=== PATIENT | male | born 1985 | race Asian ===

== ENCOUNTER 2018-03-12 03:33 | Day surgery (SDC) | payer OTHER ==
[~2018-03-12 03:33] MED LIST: ONDANSETRON 4 MG/2 ML VIAL IVPUSH PRN
[2018-03-12] MEDS ORDERED: SODIUM CHLORIDE 1,000 ML IV SCH ×2 (04:15→07:00)
[2018-03-12] MEDS ORDERED: ACETAMINOPHEN 1000 MG/100 ML VIAL (NON FORMULARY) IVPB ONE ×2 (04:15→10:50)
--- NOTE | 2018-03-12 04:19 | PDOC ---
History of Present Illness - General Chief Complaint: Pain, Acute Stated Complaint: STOMACH PAIN Time Seen by Provider: 03/12/18 03:35 - History of Present Illness Initial Comments: 03/12/18 04:57 32 year old man with no past medical who presents with sudden onset throbbing mid abdominal pain that began at 1700 was initially rated at 3/10 and has continued to progress since onset. At 2000 the patient noted that the pain started radiating to the back and continued to worsen. The patient denies taking anything for the pain. Denies nausea, vomiting, diarrhea, constipation, blood in urine or stool, dysuria, fevers, chest pain or shortness of breath. The patient has no other complaints at bedside. PMHX: none PSHX: none Meds: none Allergies: NKDA Tob: none Etoh: none Rec drugs: none PCP: none Past History - Past Medical History Allergies/Adverse Reactions: Allergies Allergy/AdvReac Type Severity Reaction Status Date / Time No Known Allergies Allergy Verified 03/12/18 03:40 Home Medications: Ambulatory Orders NK [No Known Home Medication] 03/12/18 - Suicide/Smoking/Psychosocial Hx Smoking History: Never smoked Have you smoked in the past 12 months: No Information on smoking cessation initiated: No Hx Alcohol Use: No Drug/Substance Use Hx: No *Physical Exam - Vital Signs Last Vital Signs Temp Pulse Resp BP Pulse Ox 97.9 F 67 20 127/84 100 03/12/18 03:38 03/12/18 03:38 03/12/18 03:38 03/12/18 03:38 03/12/18 03:38 - Physical Exam Comments: 03/12/18 04:17 GENERAL: Awake, alert, and fully oriented, in no acute distress HEAD: No signs of trauma, normocephalic, atraumatic EYES: EOMI, sclera anicteric, conjunctiva clear ENT: oropharynx clear without exudates. Moist mucosa NECK: Normal ROM, supple LUNGS: No distress, speaks full sentences, clear to auscultation bilaterally HEART: Regular rate and rhythm, normal S1 and S2, no murmurs, rubs or gallops, peripheral pulses normal and equal bilaterally. ABDOMEN: Soft, nontender, normoactive bowel sounds. + RLQ tenderness to palpation, + guarding, No rebound BACK: No CVA tenderness GENITAL: No discharge at penile meatus, circumcised male w/ no lesions, masses of deformities, testes normal size, nontender and w/o masses EXTREMITIES : Normal inspection, Normal range of motion, no edema. No clubbing or cyanosis. NEUROLOGICAL: Normal speech, normal gait, no focal sensorimotor deficits SKIN: Warm, Dry, normal turgor, no rashes or lesions noted ED Treatment Course - LABORATORY CBC & Chemistry Diagram: 03/12/18 04:22 03/12/18 04:22 - RADIOLOGY Radiology Studies Ordered: Category Date Time Status ABDOMEN CT WITH CONTRAST* [CT] Stat CT Scan 03/12/18 04:16 Ordered Medical Decision Making - Medical Decision Making 32 year old man with no past medical who presents with sudden onset throbbing mid abdominal pain that began at 1700 was initially rated at 3/10 and has continued to progress since onset. At 2000 the patient noted that the pain started radiating to the back and continued to worsen. The patient denies taking anything for the pain. Denies nausea, vomiting, diarrhea, constipation, blood in urine or stool, dysuria, fevers, chest pain or shortness of breath. DDX including but not limited to: appendicitis vs nephrolithiasis vs W/U: - cbc, cmp, lipase - ua, ucx - abd CT TX: - 1L NS - tylenol ED Course: Patient assessed. stable. 03/12/18 05:04 Patient feels improvement with tylenol. 03/12/18 05:13 Pt ambulating the bathroom without difficulty 03/12/18 06:25 Patient reassessed. Reports pain has subsided reports some residual L sided tenderness. Nontender abdomen to palpation. *DC/Admit/Observation/Transfer Diagnosis at time of Disposition: Appendicitis - Discharge Dispostion Decision to Admit order: Yes - Referrals - Patient Instructions - Post Discharge Activity
[2018-03-12 04:33] LABS: URINE APPEARANCE CLEAR; URINE BILIRUBIN NEGATIVE (<2.0 mg/dL); URINE COLOR COLORLESS; URINE GLUCOSE (UA) NEGATIVE (NEGATIVE); URINE KETONE NEGATIVE (NEGATIVE); URINE LEUK ESTERASE NEGATIVE (NEGATIVE); URINE NITRITE NEGATIVE (NEGATIVE); URINE PROTEIN NEGATIVE (NEGATIVE); URINE UROBILINOGEN NEGATIVE mg/dL (0.2-1.0)
[2018-03-12 04:35] LABS: HEMATOCRIT 42.1 % (35.4-49); HEMOGLOBIN 13.4 GM/dL (11.7-16.9); MCH 21.2 pg (25.7-33.7); MCHC 31.8 g/dl (32.0-35.9); MEAN CELL VOLUME 66.7 fl (80-96); MEAN PLT VOLUME 8.8 fl (7.5-11.1); PLATELET COUNT 207 K/MM3 (134-434); RBC 6.31 M/mm3 (4.00-5.60); WHITE BLOOD COUNT 10.6 K/mm3 (4.0-10.0)
--- NOTE | 2018-03-12 04:38 | PDOC ---
Attending Attestation - Resident Resident Name: Munira Monsivais - ED Attending Attestation I have performed the following: I have examined & evaluated the patient, The case was reviewed & discussed with the resident, I agree w/resident's findings & plan, Exceptions are as noted - HPI HPI: 03/12/18 04:37 Agree with residents HPI - Physicial Exam PE: 03/12/18 04:38 Agree with residents PE - Medical Decision Making 03/12/18 07:14 Right lower quadrant pain on exam. History examination concerning for early appendicitis CT IV contrast ordered CT IV contrast demonstrates acute appendicitis, no evidence of perforation Case discussed with Dr. Denis surgery. Patient made NPO, IV fluids given antibiotics ordered.
[2018-03-12 05:06] LABS: ALBUMIN 4.4 g/dl (3.4-5.0); ALK PHOS 63 U/L (45-117); ANION GAP 6 MMOL/L (8-16); BILIRUBIN,TOTAL 0.6 mg/dL (0.2-1); BLOOD UREA NITROGEN 17 mg/dL (7-18); CHLORIDE 102 mmol/L (98-107); CO2 30 mmol/L (21-32); CREATININE 0.9 mg/dL (0.55-1.3); GLUCOSE,RANDOM 111 mg/dL (74-106); LIPASE 163 U/L (73-393); POTASSIUM 3.4 mmol/L (3.5-5.1); SGOT/AST 20 U/L (15-37); SGPT/ALT 25 U/L (13-61); SODIUM 137 mmol/L (136-145)
[2018-03-12] MEDS ORDERED: CEFTRIAXONE 1,000 MG in DEXTROSE 5%-WATER - 50 ML IVPB ONE (06:53)
[2018-03-12] MEDS ORDERED: CEFTRIAXONE 1 GM/50 ML BAG ONE (06:54)
[2018-03-12] MEDS ORDERED: morphine CARPU-JECT 4 MG/1 ML DISP.SYRIN IVPUSH ONE (06:55)
[2018-03-12] MEDS ORDERED: MORPHINE SULFATE 2 MG/ML VIAL ONE ×2 (06:57→09:02)
[2018-03-12] MEDS ORDERED: CEFOXITIN SODIUM 2 GM in DEXTROSE 5%-WATER - 100 ML IVPB ONE (07:00)
[2018-03-12] MEDS ORDERED: morphine SULFATE 4 MG/ML VIAL IVPUSH PRN ×2 (07:12→13:08)
[2018-03-12] MEDS ORDERED: LACTATED RINGERS SOLUTION 1,000 ML IV SCH ×2 (07:15→11:15)
--- NOTE | 2018-03-12 07:19 | HP ---
Admitting History and Physical - Admission Chief Complaint: Abdominal pain History of Present Illness: 32 yo man with no past medical who presents with sudden onset throbbing mid abdominal pain that began at 1700 was initially rated at 3/10 and has continued to progress since onset. At 1999 the patient noted that the pain started radiating to the back and continued to worsen. The patient denies taking anything for the pain. Denies nausea, vomiting, diarrhea, constipation, blood in urine or stool, dysuria, fevers, chest pain or shortness of breath. The patient has no other complaints at bedside. no previous abdominal pain. We were asked to assess. History Source: Patient, Medical Record Limitations to Obtaining History: No Limitations - Smoking History Smoking history: Never smoked Have you smoked in the past 12 months: No - Alcohol/Substance Use Hx Alcohol Use: No Home Medications - Allergies Allergies/Adverse Reactions: Allergies Allergy/AdvReac Type Severity Reaction Status Date / Time No Known Allergies Allergy Verified 03/12/18 03:40 - Home Medications Home Medications: Ambulatory Orders NK [No Known Home Medication] 03/12/18 Review of Systems - Review of Systems Constitutional: denies: Chills, Fever Eyes: denies: Blind Spots, Recent Change in Vision HENT: denies: Difficult Swallowing, Throat Pain Neck: denies: Pain on Movement, Stiffness, Tenderness Cardiovascular: denies: Chest Pain, Palpitations Respiratory: denies: Cough, SOB Gastrointestinal: reports: Abdominal Pain. denies: Constipation, Diarrhea Genitourinary: denies: Burning, Discharge, Dysuria Breasts: reports: No Symptoms Reported. denies: Pain Musculoskeletal: denies: Back Pain, Crepitus Integumentary: denies: Pruritis, Rash Neurological: denies: Seizure, Syncope Endocrine: denies: Unexplained Weight Gain, Unexplained Weight Loss Hematology/Lymphatic: denies: Easily Bruised, Excessive Bleeding Psychiatric: denies: Anxiety, Depression Physical Examination Vital Signs: Vital Signs Temperature 97.9 F 03/12/18 03:38 Pulse Rate 67 03/12/18 03:38 Respiratory Rate 20 03/12/18 03:38 Blood Pressure 127/84 03/12/18 03:38 O2 Sat by Pulse Oximetry (%) 100 03/12/18 03:38 Constitutional: Yes: Well Nourished, No Distress, Calm Eyes: Yes: Conjunctiva Clear, EOM Intact HENT: Yes: Atraumatic, Normocephalic Neck: Yes: Supple, Trachea Midline Cardiovascular: Yes: Regular Rate and Rhythm, S1, S2 Respiratory: Yes: Regular, CTA Bilaterally Gastrointestinal: Yes: Normal Bowel Sounds, Soft, Tenderness. No: Distention, Tenderness, Epigastrium, Tenderness, Rebound ...Rectal Exam: Yes: Deferred Renal/: No: CVA Tenderness - Left, CVA Tenderness - Right Extremities: No: Cool, Cyanosis Edema: No Peripheral Pulses WNL: Yes Peripheral Pulses: Left Radial: 2+, Right Radial: 2+, Left Doralis Pedis: 2+, Right Dorsalis Pedis: 2+ Integumentary: Yes: Incision, Jaundice Wound/Incision: Yes: Clean/Dry, Well Approximated Neurological: Yes: Alert, Oriented Psychiatric: Yes: Alert, Oriented Labs: CBC, BMP 03/12/18 04:22 03/12/18 04:22 Imaging - Results Cat Scan: Report Reviewed, Image Reviewed (inflamed appendix) Problem List - Problems (1) Appendicitis Assessment/Plan: 32 yo male no signifcant PMH presented with acute appendeicistis with localized peritonitis NPO and IVF IV antibiotics Discussed with patient risks, benefits and alternatives of laparoscopic possible open appendectomy, including but not limited to bleeding, infection, injury to adjacent structures, leak or injury, intraabdominal abscess, incisional hernia, need for further procedures, ; alternatives include antibiotics, delayed or no surgery - risks of this include failure of nonoperative therapy, perforation, sepsis, recurrence, . Patient desires to proceed with operation - will take to OR for above. Informed consent signed for same. Code(s): K37 - UNSPECIFIED APPENDICITIS Qualifiers: Appendicitis type: acute appendicitis Acute appendicitis type: with localized peritonitis Qualified Code(s): K35.3 - Acute appendicitis with localized peritonitis (2) Abdominal pain in male Code(s): R10.9 - UNSPECIFIED ABDOMINAL PAIN (3) Leukocytosis Code(s): D72.829 - ELEVATED WHITE BLOOD CELL COUNT, UNSPECIFIED Qualifiers: Leukocytosis type: bandemia Qualified Code(s): D72.825 - Bandemia
[2018-03-12 07:33] LABS: INR 1.12 (0.83-1.09); PROTHROMBIN TIME (PATIENT) 12.6 SEC (9.7-13.0)
[2018-03-12 09:58] LABS: ANISOCYTOSIS 1+
[2018-03-12 09:59] LABS: MACROCYTOSIS 1+; PLATELET ESTIMATE ADEQUATE
[2018-03-12] MEDS ORDERED: ACETAMINOPHEN INJECTION 100 ML IVPB ONE (10:57)
[2018-03-12] MEDS ORDERED: ONDANSETRON 4 MG/2 ML VIAL IVPUSH PRN ×2 (11:15→13:08)
[2018-03-12] MEDS ORDERED: fentaNYL CITRATE 250 MCG/5 ML VIAL ONE (11:44)
[2018-03-12] MEDS ORDERED: PROPOFOL 20 ML ONE (11:44)
[2018-03-12] MEDS ORDERED: MIDAZOLAM HCL 2 MG/2 ML SINGLE DOSE VIAL ONE (11:44)
[2018-03-12] MEDS ORDERED: LIDOCAINE HCL/PF 2% SDV 5ML VIAL ONE (11:59)
[2018-03-12] MEDS ORDERED: DEXAMETHASONE SOD PHOSPHATE 4 MG/1 ML VIAL ONE (11:59)
[2018-03-12] MEDS ORDERED: NEOSTIGMINE METHYLSULFATE 0.5 MG/ML - 10 ML MDV ONE (12:23)
[2018-03-12] MEDS ORDERED: NALOXONE HCL 0.4 MG/ML VIAL ONE (12:39)
--- NOTE | 2018-03-12 12:50 | OP ---
Operative Note - Note: Operative Date: 03/12/18 Pre-Operative Diagnosis: Acute appendicitis with localized peritonitis Operation: laparoscopic appendectomy Findings: inflamed appendix, purulent exudate on surface of the appendix. Post-Operative Diagnosis: Same as Pre-op Surgeon: Dima Denis Anesthesiologist/MILL TENDER WARM UP: Karon Kee Anesthesia: General Specimens Removed: appendix Estimated Blood Loss (mls): 10 Drains, Volume Out (mls): 400 (madrid (removed) ) Fluid Volume Replaced (mls): 600 Operative Report Dictated: Yes
--- NOTE | 2018-03-12 13:02 | DS ---
Physical Examination Vital Signs: Vital Signs Temperature 97.8 F 03/12/18 11:15 Pulse Rate 60 03/12/18 11:15 Respiratory Rate 16 03/12/18 11:15 Blood Pressure 134/73 03/12/18 11:15 O2 Sat by Pulse Oximetry (%) 100 03/12/18 11:15 Vital Signs Period Temp Pulse Resp BP Sys/Grant Pulse Ox Last 24 Hr 97.8 F-98.8 F 60-68 16-20 117-134/72-84 100-100 Findings/Remarks: stable postoperatively, moderate nausea and 1 episode of vomiting. tolerating diet and ambulating. Constitutional: Yes: Well Nourished, No Distress, Calm Eyes: Yes: Conjunctiva Clear, EOM Intact HENT: Yes: Atraumatic, Normocephalic Neck: Yes: Supple, Trachea Midline Cardiovascular: Yes: Regular Rate and Rhythm, S1, S2 Respiratory: Yes: Regular, CTA Bilaterally Gastrointestinal: Yes: Normal Bowel Sounds, Soft, Tenderness (incisonal). No: Tenderness, Epigastrium, Tenderness, Rebound ...Rectal Exam: Yes: Deferred Renal/: No: CVA Tenderness - Left, CVA Tenderness - Right Musculoskeletal: No: Muscle Pain, Muscle Weakness Extremities: No: Cool, Cyanosis Edema: No Peripheral Pulses WNL: Yes Peripheral Pulses: Left Radial: 2+, Right Radial: 2+, Left Doralis Pedis: 2+, Right Dorsalis Pedis: 2+ Integumentary: No: Incision, Jaundice, Petechiae, Rash Wound/Incision: Yes: Clean/Dry, Well Approximated, Dressing Dry and Intact Neurological: Yes: Alert, Oriented Psychiatric: Yes: Alert, Oriented Labs: CBC, BMP 03/12/18 04:22 03/12/18 04:22 Discharge Summary Reason For Visit: APPENDICITIS Current Active Problems Abdominal pain in male (Acute) Appendicitis (Acute) Leukocytosis (Acute) Procedures: Principal: Laparoscopic appendectomy Hospital Course: Admitted for emergency surgery. uneventful laparoscopic appendectomy. tolerating diet, nuasea treated. voiding and ambulating. stable for discharge home. Time spent reviewing chart, examining patient, talking with providers and/or family and documentation is 35 minutes. Condition: Improved - Instructions Diet, Activity, Other Instructions: Postoperative instructions: You had a laparoscopic appendectomy on 03/12/2018 Dr. Dima Denis of [facility]. Activity: Resume your usual activities gradually, but no heavy exertion or lifting more than 10-15 pounds for 1 month. Remove dressings 48 hours after surgery; sticky tapes underneath will fall off by themselves. You may shower daily starting then, just pat the incision areas dry. No bath or swimming until skin incisions have healed. Eat lightly at first, but advance to your usual diet as tolerated. Pain: For pain, you may use and alternate Tylenol (acetaminophen) 1-2 pills and/ or ibuprofen 200 mg (1-3 pills) every 6 hours each as needed; this means that you can take one OR the other at 3-hour intervals. If you are prescribed a Tylenol/narcotic combination for severe pain, use it instead of plain Tylenol as needed and switch back when your pain starts decreasing. Do not take more than 4000mg of acetaminophen in a day. Take medications as prescribed or indicated on the labeling. Follow-up: Call Dr. Denis' office at [phone] to make your postop appointment (Tuesday in approximately 2 weeks after surgery). Clinic is held in the [facility] on the first floor of [facility]. Call the office if you have: * increasing pain not responsive to pain medication * fever of 101F or higher * vomiting * unusual or increasing bleeding or drainage from wounds * increasing redness or swelling at wound sites * inability to urinate Also, see your primary medical doctor within 1-2 weeks. Disposition: HOME - Home Medications Comprehensive Discharge Medication List: Ambulatory Orders Amox-Tr/K Cl [Augmentin - 875Mg Tablet] 1 tab PO BID #14 tablet 03/12/18 Oxycodone HCl/Acetaminophen [Percocet 5/325 -] 1 tab PO Q6H #40 tab MDD 5
[2018-03-12] MEDS ORDERED: cefOXitin SODIUM 1 GM/10 ML PUSH (RESTRICTED TO ID) IVPUSH ONE ×2 (13:15)
[2018-03-12] MEDS ORDERED: CEFOXITIN SODIUM 1 GM in DEXTROSE 5%-WATER - 100 ML IVPB ONE (13:15)
[2018-03-12] MEDS ORDERED: LACTATED RINGERS SOLUTION 1,000 ML/1,000 ML INFUS.BAG IV SCH ×2 (13:15)
[2018-03-12] MEDS: ONDANSETRON 4 MG/2 ML VIAL IVPUSH SCH (21:08)
[2018-03-13 01:36] VITALS: BMI 22.5
[2018-03-13] MEDS: ONDANSETRON 4 MG/2 ML VIAL IVPUSH SCH ×2 (02:28→07:21)
[2018-03-13 09:53] VITALS: BP 113/69; PULSE 73; TEMP 98.1
--- NOTE | 2018-03-15 14:53 | PATH ---
Surgical Pathology Report Patient Name: ANGELA LYONS [facility]. Rec. #: [id number] /Age/Gender: 1985 (Age: 32) / M Account: [id number] Location: [facility] SURGICAL Taken: 03/12/2018 Received: 03/13/2018 Reported: 03/15/2018 Physicians: Dima Denis M.D. PHYSICIAN EMERGENCY DEPT Specimen(s) Received APPENDIX Clinical History Acute appendicitis Final Diagnosis APPENDIX, APPENDECTOMY: ACUTE APPENDICITIS AND PERIAPPENDICITIS. Electronically Signed Alesha Jensen M.D. Gross Description Received in formalin, labeled "appendix," is a 9 x 1 cm. in length vermiform appendix with a stapled margin of resection and scant attached fat. The serosa is white-caruso with focal areas of hemorrhage. Sectioning reveals a hemorrhagic lumen. Watch And Clock Repairer sections are submitted in one cassette. MLSZ/03/13/2018 sanbibi/03/13/2018
--- NOTE | 2018-03-16 14:49 | OP ---
DATE OF OPERATION: 03/12/2018 PREOPERATIVE DIAGNOSIS: Acute appendicitis with localized peritonitis. POSTOPERATIVE DIAGNOSIS: Acute appendicitis with localized peritonitis. PROCEDURE: Laparoscopic appendectomy. ATTENDING SURGEON: Dima Denis MD GLASS LINED TANK REPAIRER: No one. ANESTHESIOLOGIST: Karon Kee MD ANESTHESIA TYPE: General with local. Local consisted of 0.25% Marcaine. A total of 10 mL given in an area block fashion. ESTIMATED BLOOD LOSS: 10 mL SPECIMEN REMOVED: Appendix. DRAINAGE: Mauricio, 400 mL urine clear, removed post case. INTRAVENOUS FLUID ADMINISTERED: Crystalloid, 600 mL. BRIEF INDICATION: Patient is a 32-year-old male presenting with 2 days of right lower quadrant pain, fevers, leukocytosis. CT confirmed the presence of acute appendicitis with dilated appendix at 1.7 mm. He was counseled regarding risks, benefits, and alternatives to surgical removal, signed informed consent, and was taken for the procedure. DESCRIPTION OF PROCEDURE: Patient was brought to the operating room. He was placed in supine position on the operating table. Lower extremities had SCDs placed to compression. He was induced with general anesthesia, endotracheally intubated without event by Anesthesia. He received intravenous antibiotics prior to surgery. I began with an anterior abdominal wall prep and drape in standard surgical fashion, blocking the lower abdomen into the surgical field. The patient had a Mauricio placed preoperatively. Again, with formal timeout identifying the operative site, procedure began then with creating an entry into the abdomen at the infraumbilical position with a Callie entry. Incision was made with a 15-blade scalpel, deepened and widened through subcutaneous tissue with Bovie cautery to the midline rectus fascia. When identified, it was elevated into the field and then entered bluntly. A finger was used to clear the abdominal viscera from the anterior abdominal wall. At which point, a Callie 12-mm trocar was installed, and a pneumoperitoneum established to 15 mmHg. With this complete, I began to inspect the entry site as well as the rest of the abdomen which appeared atraumatic. The additional trocar sites were one placed at the suprapubic position, the left lower quadrant under direct visualization. At which point, the patient was positioned in Trendelenburg, and the cecum was then cleared. Tracing the anatomy back, the appendix was identified. It appeared slightly adherent to the right abdominal wall internally. The appendix was grasped, and then, a plane was developed between the base of the appendix at the cecum and the mesoappendix. After re-siting the camera, a stapler was introduced from the umbilical port and used to staple the base of the appendix at the cecum. An Endo DIEUDONNE with a blue load, 60 mm, was used to transect this structure. The mesoappendix was then taken using an additional white load, a vascular load, for the Endo DIEUDONNE, 60 mm, to take the mesoappendix. The appendix was then retrieved from the umbilicus using an Endo Catch bag. A small amount of bloody effluent as well as some inflammatory ascites was suctioned from the abdomen. The patient was restored to normal position. All counts were correct. Trocars were then removed under direct visualization, and the Callie entry port was then closed using a 0 Vicryl lying in a [id number]. Care was taken to clean each port site and close it with subcuticular closure of 4-0 Vicryl at the 5-mm ports and a running subcuticular closure of 4-0 Vicryl at the umbilicus. The skin was cleaned. Sterile dressings were placed. Patient was awoken from general anesthesia, having tolerated the procedure well. MD DAVID Sanchez/[id number]
== END 2018-03-13 11:09 | disposition home or self-care (01) ==
LOC: JER 03:33 → JASU-SURG 08:17 → J7W 14:08 → JASU-SURG 03-13 11:09
PROC: 0DTJ4ZZ Resection of Appendix, Percutaneous Endoscopic Approach (ICD-10-PCS; principal; 2018-03-12 11:20)
DX: K35.3 Acute appendicitis with localized peritonitis (principal)
CPT/HCPCS: 36415; 74177-TC; 80053; 81003; 83690; 85025; 85610; 85730; 86850; 86900; 86901; 87086; 88304-TC; 94760; 99284-25; J0131; J7030